=== PATIENT | male | born 1985 | race Caucasian/White ===

== ENCOUNTER 2016-06-25 23:40 | Observation (INO) | payer MEDICAID, OTHER ==
[2016-06-26 00:10] VITALS: BMI 33.6
--- NOTE | 2016-06-26 00:38 | ED PDOC ---
Arrival/HPI - General Chief Complaint: Chest Pain Time Seen by Provider: 06/26/16 00:11 Historian: Patient - History of Present Illness Narrative History of Present Illness (Text): 06/26/16 00:38 Evangelina Quarels is a 31 year old male, with no significant past medical history , who presents to the Emergency department complaining of intermittent chest pain. Patient states he has been experiencing intermittent sharp chest pain tonight, with associated left arm discomfort and dyspnea on exertion. Patient states he has experienced similar symptoms in the past but never sought out further evaluation. Patient denies any fever, chills, nausea, vomiting, diarrhea , urinary symptoms, back pain, neck pain, headache, dizziness, or any other complaints. Patient states he took Aspirin at 21:00 while at home. Time/Duration: Other (tonight) Symptom Onset: Gradual Symptom Course: Unchanged Activities at Onset: Rest, Light Context: Home Past Medical History - Provider Review Nursing Documentation Reviewed: Yes - Infectious Disease Hx of Infectious Diseases: None - Psychiatric Hx Depression: No Hx Emotional Abuse: No Hx Physical Abuse: No Hx Substance Use: No - Anesthesia Hx Anesthesia: No - Suicidal Assessment Feels Threatened In Home Enviroment: No Family/Social History - Physician Review Nursing Documentation Reviewed: Yes Family/Social History: No Known Family HX Smoking Status: Never Smoked Hx Alcohol Use: No Hx Substance Use: No Hx Substance Use Treatment: No Allergies/Home Meds Allergies/Adverse Reactions: Allergies No Known Allergies Allergy (Verified 10/21/11 13:26) Review of Systems - Physician Review All systems were reviewed & negative as marked: Yes - Review of Systems Constitutional: Normal. absent: Fevers Eyes: Normal ENT: Normal Respiratory: Normal. absent: SOB, Cough Cardiovascular: Chest Pain, BARNES Gastrointestinal: Normal. absent: Abdominal Pain, Diarrhea, Nausea, Vomiting Genitourinary Male: Normal. absent: Dysuria, Frequency, Hematuria, Urinary Output Changes Musculoskeletal: Normal. absent: Back Pain, Neck Pain Skin: Normal. absent: Rash Neurological: Normal. absent: Headache, Dizziness Endocrine: Normal Hemo/Lymphatic: Normal Psychiatric: Normal Physical Exam Vital Signs Reviewed: Yes Vital Signs Temp Pulse Resp BP Pulse Ox 06/26/16 04:40 74 16 106/55 L 97 06/26/16 03:50 65 17 104/65 96 06/26/16 00:11 98.3 F 85 18 122/68 96 Temperature: Afebrile Blood Pressure: Normal Pulse: Regular Respiratory Rate: Normal Appearance: Positive for: Well-Appearing, Non-Toxic, Comfortable Pain Distress: None Mental Status: Positive for: Alert and Oriented X 3 - Systems Exam Head: Present: Atraumatic, Normocephalic Pupils: Present: PERRL Extroacular Muscles: Present: EOMI Conjunctiva: Present: Normal Mouth: Present: Moist Mucous Membranes Neck: Present: Normal Range of Motion Respiratory/Chest: Present: Clear to Auscultation, Good Air Exchange. No: Respiratory Distress, Accessory Muscle Use Cardiovascular: Present: Regular Rate and Rhythm, Normal S1, S2. No: Murmurs Abdomen: Present: Normal Bowel Sounds. No: Tenderness, Distention, Peritoneal Signs Back: Present: Normal Inspection Upper Extremity: Present: Normal Inspection. No: Cyanosis, Edema Lower Extremity: Present: Normal Inspection. No: Edema Neurological: Present: GCS=15, CN II-XII Intact, Speech Normal Skin: Present: Warm, Dry, Normal Color. No: Rashes Psychiatric: Present: Alert, Oriented x 3, Normal Insight, Normal Concentration Medical Decision Making ED Course and Treatment: 06/26/16 00:38 Impression: 31 year old male complaining of chest pain and dyspnea on exertion. Plan: -- EKG -- Chest X-ray -- Labs, cardiac enzymes -- Reassess and disposition Progress Notes: Reviewed EKG, NSR at [address]-segment elevations or depressions, no T-wave inversions, normal intervals. 06/26/16 02:34 Reviewed radiology, CXR shows no active disease. 06/26/16 02:[address] discussed with certified court/medical interpreter, who is aware and agrees with plan. House physician notified. 06/26/16 03:[address] Weinstein, who is aware and agrees with plan. Accepts pt in to hospitalist service. Pt will go to Telemetry observation for chest pain. Pt is no acute distress. Discussed results and hospital observation plan with pt , who is aware and verbalizes understanding. - Lab Interpretations Lab Results: 06/26/16 01:20 06/26/16 01:20 Lab Results 06/26/16 03:00: TSH 3rd Generation 4.00 06/26/16 03:00: Hemoglobin A1c 6.5 06/26/16 03:00: Triglycerides 584 H, Cholesterol 202 H, LDL Cholesterol Direct 105, HDL Cholesterol 21 L 06/26/16 01:40: D-Dimer, Quantitative 0.19 06/26/16 01:20: WBC 8.1, RBC 4.88, Hgb 14.7, Hct 41.9 L, MCV 85.9, MCH 30.1, MCHC 35.1, RDW 13.0, Plt Count 207, MPV 9.6 06/26/16 01:20: Sodium 139, Potassium 4.2, Chloride 102, Carbon Dioxide 27, Anion Gap 14, BUN 16, Creatinine 0.7, Est GFR ( Amer) > 60, Est GFR (Non- Af Amer) > 60, Random Glucose 97, Calcium 9.0, Total Bilirubin 0.6, AST 36, ALT 77 H, Alkaline Phosphatase 62, Lactate Dehydrogenase 675, Total Creatine Kinase 136, Troponin I < 0.01, Total Protein 7.6, Albumin 4.1, Globulin 3.5, Albumin/ Globulin Ratio 1.2 06/26/16 01:20: PT 10.9, INR 1.01, APTT 25.3 I have reviewed the lab results: Yes - RAD Interpretation Radiology Orders: 06/26/16 00:54 CHEST PORTABLE [RAD] Stat - EKG Interpretation Interpreted by ED Physician: Yes Type: 12 lead EKG - Medication Orders Current Medication Orders: Discontinued Medications Aspirin (Aspirin Chewable) 81 mg PO DAILY [facility] Last Admin: 06/26/16 10:46 Dose: 81 mg Atenolol (Tenormin) 25 mg PO DAILY [facility] Last Admin: 06/26/16 10:47 Dose: 25 mg Atorvastatin Calcium (Lipitor) 20 mg PO DIN [facility] Last Admin: 06/26/16 17:20 Dose: Ibuprofen (Motrin Tab) 600 mg PO Q6H PRN PRN Reason: Pain, moderate (4-7) Pantoprazole Sodium (Protonix Ec Tab) 40 mg PO ACB [facility] Last Admin: 06/26/16 08:06 Dose: 40 mg - Jewellibe Statement The provider has reviewed the documentation as recorded by the Soo Manzo Provider Attestation: All medical record entries made by the Jewellibzhanna were at my direction and personally dictated by me. I have reviewed the chart and agree that the record accurately reflects my personal performance of the history, physical exam, medical decision making, and the department course for this patient. I have also personally directed, reviewed, and agree with the discharge instructions and disposition. Disposition/Present on Arrival - Present on Arrival Any Indicators Present on Arrival: No History of DVT/PE: No History of Uncontrolled Diabetes: No Urinary Catheter: No History of Decub. Ulcer: No History Surgical Site Infection Following: None - Disposition Have Diagnosis and Disposition been Completed?: Yes Diagnosis: Chest pain Disposition: HOME/ ROUTINE Disposition Time: 03:05 Condition: GOOD
[2016-06-26 01:34] LABS: HEMATOCRIT 41.9 % (42.0-52.0); MEAN CELL VOLUME 85.9 fL (80.0-105.0); MEAN CORPUSCULAR HEMOGLOBIN 30.1 pg (25.0-35.0); MEAN CORPUSCULAR HGB CONC 35.1 g/dl (31.0-37.0); MEAN PLATELET VOLUME 9.6 fl (7.0-11.0); WHITE BLOOD COUNT 8.1 10^3/ul (4.5-11.0)
[2016-06-26 01:43] LABS: ALB/GLOB RATIO 1.2 (1.1-1.8); ALKALINE PHOSPHATASE 62 U/L (38-133); ALT/SGPT 77 U/L (7-56); AST/SGOT 36 U/L (15-59); BILIRUBIN,TOTAL 0.6 mg/dL (0.2-1.3); BLOOD UREA NITROGEN 16 mg/dL (7-21); CARBON DIOXIDE 27 mmol/L (21-33); CHLORIDE 102 mmol/L (98-107); GFR AFRICAN-AMERICAN > 60; GLUCOSE,RANDOM 97 mg/dL (70-110); POTASSIUM 4.2 mmol/L (3.6-5.0); SODIUM 139 mmol/L (132-148); TOTAL PROTEIN 7.6 g/dL (5.8-8.3)
[2016-06-26 01:45] LABS: INR 1.01 (0.93-1.08); PARTIAL THROMBOPLASTIN TIME 25.3 Seconds (23.7-30.8)
[2016-06-26 01:57] LABS: TROPONIN I < 0.01 ng/mL
--- NOTE | 2016-06-26 03:28 | CP.PCM.HP ---
<Diane Adame - Last Filed: 06/26/16 03:20> History of Present Illness - History of Present Illness History of Present Illness: This is a 31Y M with PMH lumbar and cervical radiculopathy here for chest pain for the past 2 weeks. The chest pain is located on the left side of his chest. It is sharp and intermittent that radiates to his jaw and his L leg at times. He has had this in the past. It did not hurt with palpation. He took an Aspirin to relieve the pain. He denies feeling fever, chills, SOB, n/v/d, tingling, vision changes. He keeps repeating that he eats unhealthy and does not exercise. He also noticed a new line on his left side of his hand that is light brown in color and does not hurt or have any redness. He says when he walks he has some numbness in his L foot, but has had this for a long time because he has lumbar disc herniation. 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 Denies tobacco, EtOH or drug use. FH: Dad- CABG, Mom- DM Present on Admission - Present on Admission Any Indicators Present on Admission: No Review of Systems - Review of Systems Review of Systems: As per HPI Past Patient History - Infectious Disease Hx of Infectious Diseases: None - Past Social History Smoking Status: Never Smoked Alcohol: None Drugs: Denies Home Situation {Lives}: With Family - PSYCHIATRIC Hx Depression: No Hx Emotional Abuse: No Hx Physical Abuse: No Hx Substance Use: No - SURGICAL HISTORY Hx Surgeries: No - ANESTHESIA Hx Anesthesia: No Meds Allergies/Adverse Reactions: Allergies Allergy/AdvReac Type Severity Reaction Status Date / Time No Known Allergies Allergy Verified 10/21/11 13:26 Physical Exam - Constitutional Appears: No Acute Distress - Head Exam Head Exam: ATRAUMATIC, NORMAL INSPECTION, NORMOCEPHALIC - Eye Exam Eye Exam: Normal appearance Pupil Exam: NORMAL ACCOMODATION - ENT Exam ENT Exam: Mucous Membranes Moist - Neck Exam Neck exam: Positive for: Normal Inspection - Respiratory Exam Respiratory Exam: Clear to Auscultation Bilateral, NORMAL BREATHING PATTERN. absent: Rales, Rhonchi, Wheezes - Cardiovascular Exam Cardiovascular Exam: REGULAR RHYTHM, +S1, +S2. absent: Gallop, Rubs, Systolic Murmur - GI/Abdominal Exam GI & Abdominal Exam: Normal Bowel Sounds, Soft, Tenderness. absent: Mass, Rebound, Rigid - Extremities Exam Extremities exam: Positive for: normal inspection. Negative for: calf tenderness, pedal edema Additional comments: fine brown line on side of L hand- not tender to palpation - Neurological Exam Neurological exam: Alert, CN II-XII Intact, Oriented x3 - Psychiatric Exam Psychiatric exam: Normal Affect, Normal Mood - Skin Skin Exam: Dry, Intact, Normal Color, Warm Results - Vital Signs Recent Vital Signs: Last Vital Signs Temp 98.3 F 06/26/16 00:11 Pulse 85 06/26/16 00:11 Resp 18 06/26/16 00:11 BP 122/68 06/26/16 00:11 Pulse Ox 96 06/26/16 00:11 - Labs Result Diagrams: 06/26/16 01:20 06/26/16 01:20 Labs: Laboratory Results - last 24 hr 06/26/16 01:20 WBC 8.1 RBC 4.88 Hgb 14.7 Hct 41.9 L MCV 85.9 MCH 30.1 MCHC 35.1 RDW 13.0 Plt Count 207 MPV 9.6 PT 10.9 INR 1.01 APTT 25.3 Sodium 139 Potassium 4.2 Chloride 102 Carbon Dioxide 27 Anion Gap 14 BUN 16 Creatinine 0.7 Est GFR ( Amer) > 60 Est GFR (Non-Af Amer) > 60 Random Glucose 97 Calcium 9.0 Total Bilirubin 0.6 AST 36 ALT 77 H Alkaline Phosphatase 62 Lactate Dehydrogenase 675 Total Creatine Kinase 136 Troponin I < 0.01 Total Protein 7.6 Albumin 4.1 Globulin 3.5 Albumin/Globulin Ratio 1.2 - EKG Data EKG Interpreted by: ER Physician EKG shows normal: Sinus rhythm Rate: Normal Assessment & Plan - Assessment and Plan (Free Text) Assessment: This is a 31Y M with PMH of lumbar and cervical disc herniation admitted for chest pain r/o ACS. Plan: 1. Chest pain - EKG showed NSR - CXR no active disease - Troponin neg x 1 - will repeat x 2 - Cardio consulted - Will check TSH, Lipid panel and HgbA1c - ASA 81mg - Ibuprofen prn pain GI ppx: PTX DVT ppx: SCDs - Date & Time Date: 06/26/16 Time: 03:32 <Sharona Weinstein - Last Filed: 06/26/16 06:51> Results - Vital Signs Recent Vital Signs: Last Vital Signs Temp 98.3 F 06/26/16 00:11 Pulse 74 06/26/16 04:40 Resp 16 06/26/16 04:40 BP 106/55 L 06/26/16 04:40 Pulse Ox 97 06/26/16 04:40 - Labs Result Diagrams: 06/26/16 01:20 06/26/16 01:20 Attending/Attestation - Attestation I have personally seen and examined this patient.: Yes I have fully participated in the care of the patient.: Yes I have reviewed all pertinent clinical information: Yes Notes (Text): 06/26/16 06:51 Patient was seen when he was in the CODE ROOM in the ER. Agree with history, physical examination, assessment and plan.
[2016-06-26 03:40] LABS: CHOLESTEROL 202 mg/dL (130-200)
[2016-06-26] MEDS ORDERED: Pantoprazole 40 mg EC Tab PO SCH (07:30)
--- NOTE | 2016-06-26 08:42 | RAD ---
HISTORY: pain COMPARISON: 11/04/2011 FINDINGS: LUNGS: No active pulmonary disease. PLEURA: No significant pleural effusion identified, no pneumothorax apparent. CARDIOVASCULAR: Normal. OSSEOUS STRUCTURES: No significant abnormalities. VISUALIZED UPPER ABDOMEN: Normal. OTHER FINDINGS: None. IMPRESSION: No active disease.
--- NOTE | 2016-06-26 09:15 | CON ---
DATE: 06/26/2016 REASON FOR CONSULTATION: Chest pain. HISTORY OF PRESENT ILLNESS: The patient is a 31-year-old male who has a history of slipping disk in the lower back as well as in the neck area. The patient had contributed that to an accident in the ast, and he is getting chiropractor therapy for it. He presented because of sharp left-sided chest p ain as well as sharp arm pain after eating a meal. The patient is unaware of any workup/prior cardia c history. The patient denies any associated diaphoresis, palpitations or dizziness. SOCIAL HISTORY: The patient is a nonsmoker, nondrinker. He works as a customer service security officer. MEDICATIONS: Protonix 40 mg p.o. once a day, ibuprofen 600 mg q. 6 hours. The patient took aspirin at home. PHYSICAL EXAMINATION: GENERAL: The patient is a young middle-aged male who does not appear to be in any distress. VITAL SIGNS: Blood pressure 119/76, heart rate 74, temperature 97.7, respirations 22. HEENT: Normocephalic. NECK: No JVD. CHEST: Clear. HEART: S1, S2 regular. EXTREMITIES: No edema, no calf tenderness. LABORATORY DATA: CBC: WBC 8.1, hemoglobin 14.7, hematocrit 41.9, platelet count 207,000. SMA-7 is within normal limits. One set of troponin is negative. Triglycerides are elevated at 584, total cho lesterol 202, HDL cholesterol is 21. TSH level is 4. ASSESSMENT: 1. Atypical chest pain, rule out myocardial infarction. 2. Hyperlipidemia. RECOMMENDATIONS: Start aspirin 81 mg once a day, atenolol 12.5 mg once a day, Lipitor 20 mg once a d ay. Obtain one more set of troponin, repeat ____ EKG, obtain D-dimer, and schedule the patient for a n echocardiogram. Rogelio Julio MD cc: [id number] TT: 06/26/2016 09:14:35 Confirmation # [id number] Dictation # [id number] jael
--- NOTE | 2016-06-26 12:54 | CARD ---
APPROVED REPORT EKG Measurement Heart [id number] <Conclusion> Normal sinus rhythm Normal ECG
[2016-06-26 14:06] VITALS: BP 131/77; RESP 70; TEMP 98.2; O2SAT 20
--- NOTE | 2016-06-26 15:03 | CARD ---
APPROVED REPORT EXAM: Two-dimensional and M-mode echocardiogram with Doppler and color Doppler. INDICATION Chest Pain 2D DIMENSIONS Left Atrium (2D)4.1 (1.6-4.0cm)IVSd1.2 (0.7-1.1cm) LVDd3.9 (3.9-5.9cm)PWd1.0 (0.7-1.1cm) LVDs2.8 (2.5-4.0cm)FS (%) 27.8 % LVEF (%)54.5 (>50%) M-Mode DIMENSIONS Aortic Root2.90 (2.2-3.7cm)Aortic Cusp Exc.2.10 (1.5-2.0cm) Aortic Valve AoV Peak Ecgvmqmw522.0cm/Marija Peak GR.5mmHg Mitral Valve MV E Ajgdzbgh31.1cm/sMV A Gmvkymwp67.5cm/sE/A ratio1.5 TDI E/Lateral E'0.0E/Medial E'0.0 Tricuspid Valve TR Peak [id number]/sRAP [id number] Peak Gr.27mmHg [id number] LEFT VENTRICLE The left ventricle is normal size. There is borderline concentric left ventricular hypertrophy. The left ventricular function is normal. The left ventricular ejection fraction is within the normal range. There is normal LV segmental wall motion. The left ventricular diastolic function is normal. RIGHT VENTRICLE The right ventricle is normal size. There is normal right ventricular wall thickness. The right ventricular systolic function is normal. ATRIA The left atrium size is normal. The right atrium size is normal. AORTIC VALVE The aortic valve is not well visualized. No aortic regurgitation is present. MITRAL VALVE The mitral valve is mildly thickened. Mitral regurgitation is trace. TRICUSPID VALVE There is trace tricuspid regurgitation. There is mild pulmonary hypertension. GREAT VESSELS The aortic root is normal in size. The IVC is normal in size and collapses >50% with inspiration. PERICARDIAL EFFUSION There is no pericardial effusion. <Conclusion> The left ventricle is normal size. There is borderline concentric left ventricular hypertrophy. The left ventricular function is normal. The left ventricular ejection fraction is within the normal range. There is normal LV segmental wall motion. The left ventricular diastolic function is normal. There is mild pulmonary hypertension.
--- NOTE | 2016-06-26 16:19 | CP.PCM.DIS ---
<Walter Carmona - Last Filed: 06/26/16 16:26> Provider - Provider Date of Admission: 06/26/16 03:03 Attending physician: Faustina Borrero MD Consults: Dr. Rogelio Julio Time Spent in preparation of Discharge (in minutes): 45 Hospital Course - Lab Results Lab Results: Most Recent Lab Values WBC 8.1 10^3/ul (4.5-11.0) 06/26/16 01:20 RBC 4.88 10^6/uL (3.5-6.1) 06/26/16 01:20 Hgb 14.7 gm/dL (14.0-18.0) 06/26/16 01:20 Hct 41.9 % (42.0-52.0) L 06/26/16 01:20 MCV 85.9 fL (80.0-105.0) 06/26/16 01:20 MCH 30.1 pg (25.0-35.0) 06/26/16 01:20 MCHC 35.1 g/dl (31.0-37.0) 06/26/16 01:20 RDW 13.0 % (11.5-14.5) 06/26/16 01:20 Plt Count 207 10^3/uL (120.0-450.0) 06/26/16 01:20 MPV 9.6 fl (7.0-11.0) 06/26/16 01:20 PT 10.9 Seconds (9.9-11.8) 06/26/16 01:20 INR 1.01 (0.93-1.08) 06/26/16 01:20 APTT 25.3 Seconds (23.7-30.8) 06/26/16 01:20 D-Dimer, Quantitative 0.19 mg/L FEU (0-0.50) 06/26/16 01:40 Sodium 139 mmol/L (132-148) 06/26/16 01:20 Potassium 4.2 mmol/L (3.6-5.0) 06/26/16 01:20 Chloride 102 mmol/L (98-107) 06/26/16 01:20 Carbon Dioxide 27 mmol/L (21-33) 06/26/16 01:20 Anion Gap 14 (10-20) 06/26/16 01:20 BUN 16 mg/dL (7-21) 06/26/16 01:20 Creatinine 0.7 mg/dL (0.5-1.4) 06/26/16 01:20 Est GFR ( Amer) > 60 06/26/16 01:20 Est GFR (Non-Af Amer) > 60 06/26/16 01:20 Random Glucose 97 mg/dL (70-110) 06/26/16 01:20 Hemoglobin A1c 6.5 % (4.2-6.5) 06/26/16 03:00 Calcium 9.0 mg/dL (8.4-10.5) 06/26/16 01:20 Total Bilirubin 0.6 mg/dL (0.2-1.3) 06/26/16 01:20 AST 36 U/L (15-59) 06/26/16 01:20 ALT 77 U/L (7-56) H 06/26/16 01:20 Alkaline Phosphatase 62 U/L (38-133) 06/26/16 01:20 Lactate Dehydrogenase 675 U/L (333-699) 06/26/16 01:20 Total Creatine Kinase 136 U/L (35-230) 06/26/16 01:20 Troponin I < 0.01 ng/mL 06/26/16 12:50 Total Protein 7.6 g/dL (5.8-8.3) 06/26/16 01:20 Albumin 4.1 g/dL (3.0-4.8) 06/26/16 01:20 Globulin 3.5 gm/dL 06/26/16 01:20 Albumin/Globulin Ratio 1.2 (1.1-1.8) 06/26/16 01:20 Triglycerides 584 mg/dL (35-160) H 06/26/16 03:00 Cholesterol 202 mg/dL (130-200) H 06/26/16 03:00 LDL Cholesterol Direct 105 mg/dL (0-129) 06/26/16 03:00 HDL Cholesterol 21 mg/dL (29-60) L 06/26/16 03:00 TSH 3rd Generation 4.00 mIU/mL (0.46-4.68) 06/26/16 03:00 - Hospital Course Hospital Course: H&P: This is a 31Y M with PMH lumbar and cervical radiculopathy here for chest pain for the past 2 weeks. The chest pain is located on the left side of his chest. It is sharp and intermittent that radiates to his jaw and his L leg at times. He has had this in the past. It did not hurt with palpation. He took an Aspirin to relieve the pain. He denies feeling fever, chills, SOB, n/v/d, tingling, vision changes. He keeps repeating that he eats unhealthy and does not exercise. He also noticed a new line on his left side of his hand that is light brown in color and does not hurt or have any redness. He says when he walks he has some numbness in his L foot, but has had this for a long time because he has lumbar disc herniation. Hospital course: Patient is a 31 y/o M with past medical hx of lumbar and cervical radiculopathy due to bulging disc who presented with intermittent chest pain for two weeks and shoulder pain. An initial chest x-ray showed no active disease process. His EKG showed normal sinus rhythm with no St wave changes. Cardiology was consulted who started him on Aspirin, Atenlolol, and Atorvastatin. He received an echocardiogram showing normal LV function with normal LVEF. His lipid panel showed elevated triglyceride and cholesterol; however, the patient reports having eaten a huge meal at [employer] just prior to coming to the hospital. His A1c was found to be 6.5 and TSH wnl. He was counselled on proper diet and daily exercise. He was determined medically stable for discharge. He was discharged with prescriptions for Motrin. He was advised to: take medications as prescribed; keep a low calorie diet and get exercise at least 30 minutes a day 3-4 days a week; follow up with a primary care physician of your choice for outpatient fasting lipid panel and outpatient stress test; refrain from alcohol, tobacco, or drug use as well as excess consumption of sodas; and if your condition worsens or new symptoms arise, please return to the emergency room. He verbalized understanding and was discharged home with family. - Date & Time of H&P Date of H&P: 06/26/16 Time of H&P: 03:20 Discharge Exam - Head Exam Head Exam: ATRAUMATIC, NORMAL INSPECTION, NORMOCEPHALIC - Eye Exam Eye Exam: EOMI, Normal appearance, PERRL Pupil Exam: NORMAL ACCOMODATION, PERRL - ENT Exam ENT Exam: Mucous Membranes Moist. absent: Normal Oropharynx (poor dentition) - Respiratory Exam Respiratory Exam: Clear to PA & Lateral, NORMAL BREATHING PATTERN. absent: Rales, Rhonchi, Wheezes - Cardiovascular Exam Cardiovascular Exam: REGULAR RHYTHM, +S1, +S2. absent: Gallop, Rubs, Systolic Murmur - GI/Abdominal Exam GI & Abdominal Exam: Normal Bowel Sounds, Soft. absent: Firm, Guarding, Tenderness Additional comments: overweight - Extremities Exam Extremities exam: normal capillary refill, normal inspection, pedal pulses present - Back Exam Back exam: NORMAL INSPECTION. absent: rash noted, tenderness - Neurological Exam Neurological exam: Alert, CN II-XII Intact, Oriented x3, Reflexes Normal - Psychiatric Exam Psychiatric exam: Normal Affect, Normal Mood - Skin Skin Exam: Dry, Intact, Normal Color, Warm Discharge Plan - Discharge Medications Prescriptions: Ibuprofen [Motrin Tab] 600 mg PO Q6H PRN #30 tab PRN Reason: Pain, Moderate (4-7) - Follow Up Plan Condition: GOOD Disposition: HOME/ ROUTINE Instructions: Chest Pain (DC), Chest Pain (GEN), Low Fat Diet (DC) Additional Instructions: You are medically stable for discharge. You are discharged with prescriptions for Motrin. Please take medications as prescribed. Please keep a low calorie diet and get exercise at least 30minutes a day 3-4 days a week. Please follow up with a primary care physician of your choice for outpatient fasting lipid panel and outpatient stress test. Please refrain from alcohol, tobacco, or drug use as well as excess consumption of sodas. If your condition worsens or new symptoms arise, please return to the emergency room. <Faustina Borrero - Last Filed: 06/26/16 17:26> Provider - Provider Date of Admission: 06/26/16 03:03 Attending physician: Faustina Borrero MD Hospital Course - Lab Results Lab Results: Most Recent Lab Values WBC 8.1 10^3/ul (4.5-11.0) 06/26/16 01:20 RBC 4.88 10^6/uL (3.5-6.1) 06/26/16 01:20 Hgb 14.7 gm/dL (14.0-18.0) 06/26/16 01:20 Hct 41.9 % (42.0-52.0) L 06/26/16 01:20 MCV 85.9 fL (80.0-105.0) 06/26/16 01:20 MCH 30.1 pg (25.0-35.0) 06/26/16 01:20 MCHC 35.1 g/dl (31.0-37.0) 06/26/16 01:20 RDW 13.0 % (11.5-14.5) 06/26/16 01:20 Plt Count 207 10^3/uL (120.0-450.0) 06/26/16 01:20 MPV 9.6 fl (7.0-11.0) 06/26/16 01:20 PT 10.9 Seconds (9.9-11.8) 06/26/16 01:20 INR 1.01 (0.93-1.08) 06/26/16 01:20 APTT 25.3 Seconds (23.7-30.8) 06/26/16 01:20 D-Dimer, Quantitative 0.19 mg/L FEU (0-0.50) 06/26/16 01:40 Sodium 139 mmol/L (132-148) 06/26/16 01:20 Potassium 4.2 mmol/L (3.6-5.0) 06/26/16 01:20 Chloride 102 mmol/L (98-107) 06/26/16 01:20 Carbon Dioxide 27 mmol/L (21-33) 06/26/16 01:20 Anion Gap 14 (10-20) 06/26/16 01:20 BUN 16 mg/dL (7-21) 06/26/16 01:20 Creatinine 0.7 mg/dL (0.5-1.4) 06/26/16 01:20 Est GFR ( Amer) > 60 06/26/16 01:20 Est GFR (Non-Af Amer) > 60 06/26/16 01:20 Random Glucose 97 mg/dL (70-110) 06/26/16 01:20 Hemoglobin A1c 6.5 % (4.2-6.5) 06/26/16 03:00 Calcium 9.0 mg/dL (8.4-10.5) 06/26/16 01:20 Total Bilirubin 0.6 mg/dL (0.2-1.3) 06/26/16 01:20 AST 36 U/L (15-59) 06/26/16 01:20 ALT 77 U/L (7-56) H 06/26/16 01:20 Alkaline Phosphatase 62 U/L (38-133) 06/26/16 01:20 Lactate Dehydrogenase 675 U/L (333-699) 06/26/16 01:20 Total Creatine Kinase 136 U/L (35-230) 06/26/16 01:20 Troponin I < 0.01 ng/mL 06/26/16 12:50 Total Protein 7.6 g/dL (5.8-8.3) 06/26/16 01:20 Albumin 4.1 g/dL (3.0-4.8) 06/26/16 01:20 Globulin 3.5 gm/dL 06/26/16 01:20 Albumin/Globulin Ratio 1.2 (1.1-1.8) 06/26/16 01:20 Triglycerides 584 mg/dL (35-160) H 06/26/16 03:00 Cholesterol 202 mg/dL (130-200) H 06/26/16 03:00 LDL Cholesterol Direct 105 mg/dL (0-129) 06/26/16 03:00 HDL Cholesterol 21 mg/dL (29-60) L 06/26/16 03:00 TSH 3rd Generation 4.00 mIU/mL (0.46-4.68) 06/26/16 03:00 Attending/Attestation - Attestation I have personally seen and examined this patient.: Yes I have fully participated in the care of the patient.: Yes I have reviewed all pertinent clinical information, including history, physical exam and plan: Yes Notes (Text): 06/26/16 17:19 31 year old male who was admitted with complaint of left sided chest pain. This was reproducible on examination. He was started on NSAIDs. Serial cardiac enzymes x 3 were negative and ACS was ruled out. He had an echocardiogram which was reviewed as above. He was seen by cardiology who recommended outpatient stress test. Labs revealed A1c on 6.5. Lipid panel (nonfasting) revealed elevated cholesterol and triglycerides. Labs were reviewed with patient. We recommended lifestyle modifications with diet and exercise. Patient is discharged home today to follow up at [facility]. Recommend outpatient stress test. Counselled on low fat, low cholesterol diet with low/moderate carb consistent diet. Recommend to check fasting lipid panel. Recommend to repeat A1c in 3-6 months. Faustina Borrero MD Hospitalist.
[2016-06-26 16:49] VITALS: PULSE 76
== END 2016-06-26 17:05 | disposition home or self-care (01) ==
LOC: ED 23:40 → ERH 06-26 03:03 → 2RSO 06-26 05:13
PROVIDERS: ADMIT Internal Medicine; ATTEND Internal Medicine
DX: R07.89 Other chest pain (principal); R06.00 Dyspnea, unspecified; M50.10 Cervical disc disorder with radiculopathy, unspecified cervical region; M51.16 Intervertebral disc disorders with radiculopathy, lumbar region; E78.5 Hyperlipidemia, unspecified; R20.0 Anesthesia of skin; Z83.3 Family history of diabetes mellitus
CPT/HCPCS: 71010; 80053; 80061; 82550; 83036; 83615; 84443; 84484; 85027; 85378; 85610; 85730; 93005; 93306; 99285; G0378

== ENCOUNTER 2018-01-26 12:31 | Emergency (ER) | payer BC, MEDICAID ==
[2018-01-26 12:32] VITALS: BMI 33.6
--- NOTE | 2018-01-26 14:12 | ED PDOC ---
Arrival/HPI - General Chief Complaint: Cough, Cold, Congestion Time Seen by Provider: 01/26/18 12:34 Historian: Patient - History of Present Illness Narrative History of Present Illness (Text): 01/26/18 14:08 32yo male with no pmhx who present with 3weeks history of productive cough and right sided facial pain with nasal congestion x 2days. +Right temporal headache that radiates to his upper gum. Denies fever, chills, chest pain, SOB, fever, chills, night sweat, weight loss, any other complaint. Past Medical History - Provider Review Nursing Documentation Reviewed: Yes - Infectious Disease Hx of Infectious Diseases: None - Cardiac Hx Cardiac Disorders: No Other/Comment: father had open heart surgery and stroke 2 months ago - Pulmonary Hx Respiratory Disorders: No - Neurological Hx Neurological Disorder: No - HEENT Hx HEENT Disorder: No - Renal Hx Renal Disorder: No - Endocrine/Metabolic Hx Endocrine Disorders: No Other/Comment: Mother has DM-II - Hematological/Oncological Hx Blood Disorders: No - Integumentary Hx Dermatological Disorder: No - Musculoskeletal/Rheumatological Hx Musculoskeletal Disorders: Yes Hx Falls: No Hx Herniated Disk: Yes - Gastrointestinal Hx Gastrointestinal Disorders: No - Genitourinary/Gynecological Hx Genitourinary Disorders: No - Psychiatric Hx Depression: No Hx Emotional Abuse: No Hx Physical Abuse: No Hx Substance Use: No - Surgical History Other/Comment: repair of nose fracture at 16 years of age - Anesthesia Hx Anesthesia: No Hx Anesthesia Reactions: No Hx Malignant Hyperthermia: No - Suicidal Assessment Feels Threatened In Home Enviroment: No Family/Social History - Physician Review Nursing Documentation Reviewed: Yes Family/Social History: Unknown Family HX Smoking Status: Never Smoked Hx Alcohol Use: No Hx Substance Use: No Hx Substance Use Treatment: No Allergies/Home Meds Allergies/Adverse Reactions: Allergies No Known Allergies Allergy (Verified 10/21/11 13:26) Review of Systems - Physician Review All systems were reviewed & negative as marked: Yes - Review of Systems Constitutional: Normal Eyes: Normal ENT: Other (NAsal congestion) Respiratory: Cough, Sputum. absent: SOB, Wheezing Cardiovascular: Normal Gastrointestinal: Normal Genitourinary Male: Normal Musculoskeletal: Normal Skin: Normal Neurological: Headache Endocrine: Normal Hemo/Lymphatic: Normal Psychiatric: Normal Physical Exam Vital Signs Reviewed: Yes Vital Signs Temp Pulse Resp BP Pulse Ox 01/26/18 12:32 98.2 F 97 H 18 139/84 96 Temperature: Afebrile Blood Pressure: Normal Pulse: Regular Respiratory Rate: Normal Appearance: Positive for: Well-Appearing, Non-Toxic, Comfortable Pain Distress: None Mental Status: Positive for: Alert and Oriented X 3 - Systems Exam Head: Present: Atraumatic, Normocephalic Pupils: Present: PERRL Extroacular Muscles: Present: EOMI Conjunctiva: Present: Normal Mouth: Present: Moist Mucous Membranes Nose (Internal): Present: Edematous (Right nare), Other (Tenderness over the right frontal and maxillary sinuses) Neck: Present: Normal Range of Motion Respiratory/Chest: Present: Clear to Auscultation, Good Air Exchange. No: Respiratory Distress, Accessory Muscle Use, Wheezes, Decreased Breath Sounds, Rales, Retracting, Rhonchi, Tachypneic Cardiovascular: Present: Regular Rate and Rhythm, Normal S1, S2. No: Murmurs Abdomen: No: Tenderness, Distention, Peritoneal Signs Back: Present: Normal Inspection Upper Extremity: Present: Normal Inspection. No: Cyanosis, Edema Lower Extremity: Present: Normal Inspection. No: Edema Neurological: Present: GCS=15, CN II-XII Intact, Speech Normal Skin: Present: Warm, Dry, Normal Color. No: Rashes Psychiatric: Present: Alert, Oriented x 3, Normal Insight, Normal Concentration Medical Decision Making ED Course and Treatment: 01/26/18 18:52 Pt presented to ED for stated history. He was hemodynamically stable and in no distress. Pt have engorged right nare. Chest xray - IMPRESSION: No focal consolidation. PT requested for Head CT worried of having intracranial derangement and it was done. Head CT IMPRESSION: No acute intracranial pathology identified. Mucosal thinking/opacification of the the ethmoid air cells, sphenoid sinuses, maxillary sinuses, and left frontal sinus. All result was DW the pt. He was DC home with Augmentin, Tessalon and Ibuprofen. referred to a ENT. - RAD Interpretation Radiology Orders: 01/26/18 13:19 CHEST TWO VIEWS (PA/LAT) [RAD] Stat - Medication Orders Current Medication Orders: Discontinued Medications Ibuprofen (Motrin Tab) 600 mg PO STAT STA Stop: 01/26/18 13:38 Last Admin: 01/26/18 13:46 Dose: 600 mg MAR Pain/Vitals Document 01/26/18 13:46 EB (Rec: 01/26/18 13:46 EB [id number]) Pain Reassessment Is This A Pain ReAssessment? No Sleep Is patient sleeping during reassessment? No Presence of Pain Presence of Pain Yes Pain Scale Used Protocol: PSCALES Pain Scale Used Numeric Location Left, Right or Bilateral Right Disposition/Present on Arrival - Present on Arrival Any Indicators Present on Arrival: No History of DVT/PE: No History of Uncontrolled Diabetes: No Urinary Catheter: No History of Decub. Ulcer: No History Surgical Site Infection Following: None - Disposition Have Diagnosis and Disposition been Completed?: Yes Diagnosis: Acute sinusitis, Cough Disposition: HOME/ ROUTINE Disposition Time: 15:05 Patient Plan: Discharge Condition: STABLE Discharge Instructions (ExitCare): Sinusitis in Adults, Cough in Adults Additional Instructions: Follow up with your Doctor Return to ED for any new or worsening symptoms Prescriptions: Amoxicillin/Clavulanate [Augmentin 875 MG-125 MG] 1 tab PO BID #20 tab Benzonatate [Tessalon Perle] 100 mg PO TID #20 capsule RX: Ibuprofen [Motrin Tab] 600 mg PO Q6 #20 tab Referrals: Narda Mckenzie MD [Medical Doctor] - Follow up with primary Forms: [email or web address] (Maldivian)
--- NOTE | 2018-01-26 14:52 | RAD ---
HISTORY: cough COMPARISON: Chest x-ray performed 06/26/16 TECHNIQUE: Chest PA and lateral FINDINGS: Examination limited by habitus. LUNGS: No focal consolidation. Please note that chest x-ray has limited sensitivity for the detection of pulmonary masses. PLEURA: No significant pleural effusion identified. No definite pneumothorax . CARDIOVASCULAR: Heart size appears within normal limits. No atherosclerotic calcification present. OSSEOUS STRUCTURES: No acute osseous abnormality identified. VISUALIZED UPPER ABDOMEN: Unremarkable. OTHER FINDINGS: None. IMPRESSION: No focal consolidation.
[2018-01-26] MEDS ORDERED: Amoxicillin-Clav 875-125 mg Tab PO STA (15:03)
[2018-01-26 15:22] VITALS: BP 129/53; PULSE 85; RESP 19; TEMP 98; O2SAT 100
--- NOTE | 2018-01-26 15:51 | CT ---
Date of service: 01/26/2018 PROCEDURE: CT HEAD WITHOUT CONTRAST. HISTORY: headache COMPARISON: None available. TECHNIQUE: Axial computed tomography images were obtained through the head/brain without intravenous contrast. Radiation dose: Total exam DLP = 858.8 mGy-cm. This CT exam was performed using one or more of the following dose reduction techniques: Automated exposure control, adjustment of the mA and/or kV according to patient size, and/or use of iterative reconstruction technique. FINDINGS: Streak artifact obscures the skull base. HEMORRHAGE: No intracranial hemorrhage. BRAIN: No mass effect or edema. The dunbar-white matter differentiation appears intact. Please note that MRI with diffusion imaging is more sensitive in the detection of acute ischemic event. VENTRICLES: No hydrocephalus. CALVARIUM: Unremarkable. PARANASAL SINUSES: Mucosal thinking/opacification of the ethmoid air cells, sphenoid sinuses, maxillary sinuses, and left frontal sinus. MASTOID AIR CELLS: Unremarkable as visualized. No inflammatory changes. OTHER FINDINGS: None. IMPRESSION: No acute intracranial pathology identified. Mucosal thinking/opacification of the the ethmoid air cells, sphenoid sinuses, maxillary sinuses, and left frontal sinus.
== END 2018-01-26 16:11 | disposition home or self-care (01) ==
LOC: ED 12:31
DX: J01.90 Acute sinusitis, unspecified (principal); R05 Cough